=== PATIENT | male | born 1965 | race Caucasian/White ===

== ENCOUNTER 2022-07-28 13:13 | Outpatient (CLI) | payer BC ==
[2022-07-28 14:29] LABS: Mean Corpuscular HGB CONC 34.9 g/dL (32.0-36.0); Mean Corpuscular Hemoglobin 29.8 pg (27.0-33.0); Mean Corpuscular Volume 85.3 fl (81.2-95.1); Mean Platelet Volume 11.6 fl (7.4-10.4); Platelet Count 242 10x3/uL (150-450); RBC Distribution Width 14.1 % (11.5-14.5); Red Blood Cell (RBC) Count 5.04 10x6/uL (4.32-5.72); White Blood Cell (WBC) Count 7.1 10x3/uL (3.5-10.5)
[2022-07-28 14:51] LABS: PTT 26.2 sec (22.0-33.0); Prothrombin Time 10.4 sec (9.5-12.1)
== END 2022-07-28 13:14 | disposition home or self-care (01) ==
LOC: LABBT 13:13
PROVIDERS: ATTEND Neurological Surgery
DX: Z01.812 Encounter for preprocedural laboratory examination (principal); M50.10 Cervical disc disorder with radiculopathy, unspecified cervical region; M48.02 Spinal stenosis, cervical region
CPT/HCPCS: 85027; 85610; 85730

== ENCOUNTER 2024-10-28 18:38 | Emergency (ER) | payer BC ==
[~2024-10-28 18:38] MED LIST: Iopamidol 370 76% 100 ML VIAL ONE
[2024-10-28] MEDS ORDERED: Metoclopramide HCl 10 MG TAB ONE (20:03)
[2024-10-28] MEDS ORDERED: Metoclopramide HCl 10 MG (2 mL) VIAL ONE (20:08)
[2024-10-28] MEDS ORDERED: Ketorolac Tromethamine 30 MG (1 mL) VIAL ONE (20:08)
[2024-10-28 20:40] LABS: #Basophils Less than 0.03 10x3/uL (0.0-0.2); #Eosinophils Less than 0.03 10x3/uL (0.0-0.7); %Basophils 0.4 % (0.0-1.0); %Lymphocytes 10.1 % (21.0-51.0); %Monocytes 16.5 % (0.0-10.0); %Neutrophils 72.6 % (42.0-75.0); Hematocrit 48.4 % (42.0-52.0); Hemoglobin 17.1 g/dL (14.0-18.0); Mean Corpuscular HGB CONC 35.3 g/dL (32.0-36.0); Mean Corpuscular Hemoglobin 29.3 pg (27.0-31.0); Mean Corpuscular Volume 82.9 fL (78.0-98.0); Mean Platelet Volume 11.6 fL (7.4-10.4); Platelet Count 186 10x3/uL (130-400); RBC Distribution Width 13.8 % (11.5-14.5); Red Blood Cell (RBC) Count 5.84 mill/uL (4.70-6.10)
[2024-10-28 21:10] LABS: ALT (SGPT) 22 U/L (Less than 45); AST (SGOT) 39 U/L (11-34); Albumin 4.5 g/dL (3.1-4.5); Alkaline Phosphatase 86 U/L (40-110); Anion Gap 17 mmol/L (10-20); BUN (Urea Nitrogen) 19 mg/dL (8.4-25.7); Bilirubin, Total 0.6 mg/dL (0.3-1.2); CK (CPK) 227 U/L (30-200); Calc. Creatinine Clearance 0 mL/min (70-130); Calcium 9.3 mg/dL (7.8-10.44); Carbon Dioxide 23 mmol/L (22-29); Chloride 99 mmol/L (98-107); Estimated GFR 78; Globulin 3.9 g/dL (2.4-3.5); Glucose 135 mg/dL (70-105); Lipase 15 U/L (8-78); Magnesium 1.8 mg/dL (1.6-2.6); Potassium 3.5 mmol/L (3.5-5.1); Protein, Total 8.4 g/dL (6.0-8.3); Sodium 135 mmol/L (136-145)
[2024-10-28] MEDS ORDERED: Haloperidol Lactate 5 MG/ML VIAL ONE (21:17)
[2024-10-28] MEDS ORDERED: fentaNYL 50 mcg/mL 1 mL Vial ONE (21:33)
[2024-10-28 22:18] LABS: Troponin I Less than 0.010 ng/mL (< 0.028)
[2024-10-29] MEDS ORDERED: Milk Of Magnesia 30 ML UDCUP ONE (00:27)
[2024-10-29] MEDS ORDERED: Dicyclomine 20 MG/2 ML VIAL ONE (00:27)
[2024-10-29] MEDS ORDERED: Lidocaine Viscous Sol 2% 15 ml UD Cup ONE (00:28)
== END 2024-10-29 00:55 | disposition home or self-care (01) ==
LOC: ERS 18:38
DX: J10.1 Influenza due to other identified influenza virus with other respiratory manifestations (principal); R11.2 Nausea with vomiting, unspecified
CPT/HCPCS: 71045; 74177; 80053; 82550; 83690; 83735; 83880; 84484; 85025; 93005; 96365; 96366; 96367; 96372; 96375; J1630; J1885; J2765; J3010; Q9967

== ENCOUNTER 2024-10-29 07:44 | Emergency (ER) | payer BC ==
[2024-10-29] MEDS ORDERED: Ketorolac Tromethamine 30 MG (1 mL) VIAL ONE (09:02)
[2024-10-29] MEDS ORDERED: diphenhydrAMINE 50 MG/ML VIAL ONE (09:03)
[2024-10-29] MEDS ORDERED: Metoclopramide HCl 10 MG (2 mL) VIAL ONE (09:03)
[2024-10-29] MEDS ORDERED: Ondansetron ODT 4 MG TAB ONE (09:05)
[2024-10-29] MEDS ORDERED: Droperidol 5 MG/2 ML VIAL SLOW IVP SCH (10:45)
[2024-10-29] MEDS ORDERED: Lorazepam 2 MG/ML VIAL ONE (12:01)
== END 2024-10-29 13:13 | disposition home or self-care (01) ==
LOC: ERS 07:44
DX: R11.2 Nausea with vomiting, unspecified (principal); J10.1 Influenza due to other identified influenza virus with other respiratory manifestations
CPT/HCPCS: 96374; 96375; J1200; J1790; J1885; J2060; J2765; Q0162